=== PATIENT | male | born 1995 | race Caucasian/White ===

== ENCOUNTER 2020-08-20 09:04 | Outpatient (CLI) | payer BC, SELFPAY ==
--- NOTE | ~2020-08-20 | XR_ITS ---
EXAMINATION: XR lumbar spine 2-3V EXAM DATE: 08/20/2020 09:25 INDICATION: Left back pain, twisting injury one month ago. TECHNIQUE: Lumber spine frontal, lateral, lateral L5-S1 projections for interpretation. Comparison is made to prior examination from 01/08/2016. FINDINGS: The vertebral bodies are aligned in the AP dimension. Vertebral body and disc heights are w ell-maintained. There is mild lumbar facet arthropathy. Mild lower lumbar dextrocurvature, scoliosis versus positional finding or muscle spasm. Sacrum, sacroiliac joints, sacral arcuate lines are intact . Paraspinal soft tissue is unremarkable. IMPRESSION: 1. Mild lumbar facet arthropathy. 2. Mild lower lumbar dextrocurvature, scoliosis versus positional finding or muscle spasm. Reviewed, dictated and finalized at location B. [employer] IMPRESSION: 1. Mild lumbar facet arthropathy. 2. Mild lower lumbar dextrocurvature, scoliosis versus positional finding or m uscle spasm.
== END 2020-08-20 09:05 | disposition home or self-care (01) ==
PROVIDERS: PCP Internal Medicine; Visit Provider Internal Medicine
DX: M54.9 Dorsalgia, unspecified (principal)
CPT/HCPCS: 72100